=== PATIENT | female | born 1995 | race Caucasian/White ===

== ENCOUNTER 2017-09-27 17:02 | Emergency (ER) | payer SELFPAY ==
[2017-09-27] MEDS ORDERED: NS 1000 ML 1,000 ML ONE (17:30)
--- NOTE | 2017-09-27 17:30 | DR.GENAD ---
HPI - Complaint/Symptoms Chief Complaint Doctors Comments: Patient presented via EMS s/p ingestion of five prozacs (20mg). She states that she arguing with her boyfirend and she did not think he was paying her any attention. She took the medication to get his attention. She denies being suicidal or homocidal. She and her significant other live together and have three children. PMH - PMH Past Medical History: Hypertension Past Surgical History: No - Family History Family Medical History: Hypertension - Social History Do you use any recreational Drugs:: No ROS - Review of Systems Eyes: No Symptoms Reported ENTM: No Symptoms Reported Respiratoy: No Symptoms Reported Cardiovascular: No Symptoms Reported Gastrointestinal/Abdominal: No Symptoms Reported Genitourinary: No Symptoms Reported Neurological: No Symptoms Reported Musculoskeletal: No Symptoms Reported Integumentary: No Symptoms Reported Hematologic/Lymphatic: No Symptoms Reported Endocrine: No Symptoms Reported Psychiatric: No Symptoms Reported All Other Systems: Reviewed and Negative PE - Vital Signs Vitals: Temperature 97.9 F Pulse Rate [Apical] 83 Pulse Rate [Left Brachial] 64 Pulse Rate 78 Respiratory Rate 16 Blood Pressure [Right Arm] 122/76 Blood Pressure [Left Arm] 121/75 Blood Pressure 120/74 O2 Sat by Pulse Oximetry 100 - General General Appearance: Alert, In No Apparent Distress - Head Head Exam: Normal Inspection, Atraumatic - Eyes Eye exam: Normal Appearance, PERRL, EOMI - ENT ENT Exam: Normal Exam External Ear Exam: Normal External Inspection TM/Canal Exam: Bilateral Normal Nose Exam: Normal Nose Exam Mouth Exam: Normal Inspection Throat Exam: Normal Inspection - Neck Neck Exam: Normal Inspection - Chest Chest Inspection: Normal Inspection - Respiratory Respiratory Exam: Normal Lung Sounds Bilat Respiratory Exam: Bilateral Clear to Auscultation - Cardiovascular Cardiovascular Exam: Regular Rate, Normal Rhythm - Abdominal Exam Abdominal Exam: Normal Inspection, Normal Bowel Sounds Abdominal Tenderness: negative: RUQ, RLQ, LUQ, LLQ, Epigastrium, Suprapubic, Diffuse, Mild, Moderate, Severe, Other - Extremities Extremities Exam: Normal Inspection, Full ROM - Back Back Exam: Normal Inspection - Neurologic Neurological Exam: Alert, Oriented X3, CN II-XII Intact - Psychiatric Psychiatric Exam: Normal Affect - Skin Skin Exam: Warm, Dry, Intact Course - Treatment Treatment: Observation, poison control contacted; recommended observation for six hours. Patient has been alert, cooperative in no distress. She verbalized that she was foolish and will not attempt any such actions in the future. Her labs are normal ROR - Labs Reviewed Result Diagrams: 09/27/17 17:26 Laboratory: Sodium 140 mmol/L (136-145) 09/27/17 17:26 Corrected Sodium TNP 09/27/17 17:26 Potassium 4.0 mmol/L (3.5-5.1) 09/27/17 17:26 Chloride 104 mmol/L (98-107) 09/27/17 17:26 Carbon Dioxide 26.6 mmol/L (21-32) 09/27/17 17:26 BUN 20 mg/dL (7-18) H 09/27/17 17:26 Creatinine 0.65 mg/dL (0.55-1.02) 09/27/17 17:26 Est GFR (MDRD) Af Amer > 60 (>60) 09/27/17 17:26 Est GFR (MDRD) Non-Af > 60 (>60) 09/27/17 17:26 Glucose 94 mg/dL (65-99) 09/27/17 17:26 Calcium 9.2 mg/dL (8.5-10.1) 09/27/17 17:26 Corrected Calcium TNP 09/27/17 17:26 Total Bilirubin 0.30 mg/dL (0.2-1.0) 09/27/17 17:26 AST 18 Units/L (15-37) 09/27/17 17:26 ALT 25 Units/L (12-78) 09/27/17 17:26 Alkaline Phosphatase 76 Units/L (46-116) 09/27/17 17:26 Total Protein 7.3 g/dL (6.4-8.2) 09/27/17 17:26 Albumin 3.8 g/dL (3.4-5.0) 09/27/17 17:26 Globulin 3.5 g/dL (2.5-4.5) 09/27/17 17:26 Albumin/Globulin Ratio 1.1 Ratio (1.1-2.1) 09/27/17 17:26 Salicylates < 2.8 mg/dL (2.8-20) L 09/27/17 19:58 Acetaminophen 0.0 ug/mL (10-30) L 09/27/17 17:26 Ethyl Alcohol mg/dL < 3 mg/dL (0-19.9) 09/27/17 17:26 - Diagnosis Discharge Problem: Anger reaction - Discharge Plan Condition: Stable - Follow ups/Referrals Follow ups/Referrals: NFD,None [Primary Care Provider] - 3 days - Instructions
[2017-09-27 17:38] VITALS: BMI 25.7
[2017-09-27] MEDS ORDERED: NS 1000 ML 1,000 ML IV ONE (17:39)
[2017-09-27 18:09] LABS: SALICYLATE < 2.8 mg/dL (2.8-20)
[2017-09-27 18:11] LABS: ALANINE AMINOTRANSFERASE 25 Units/L (12-78); ALBUMIN 3.8 g/dL (3.4-5.0); ALKALINE PHOSPHATASE 76 Units/L (46-116); ASPARTATE AMINO TRANSFERASE 18 Units/L (15-37); BLOOD UREA NITROGEN 20 mg/dL (7-18); CALCIUM 9.2 mg/dL (8.5-10.1); CARBON DIOXIDE 26.6 mmol/L (21-32); CHLORIDE 104 mmol/L (98-107); CREATININE 0.65 mg/dL (0.55-1.02); SODIUM 140 mmol/L (136-145); TOTAL PROTEIN 7.3 g/dL (6.4-8.2); eGFR BLACK RACES > 60 (>60); eGFR NON BLACK RACES > 60 (>60)
[2017-09-27 18:12] LABS: BLOOD ALCOHOL < 3 mg/dL (0-19.9)
[2017-09-27 22:58] VITALS: BP 132/71
== END 2017-09-27 23:07 | disposition home or self-care (01) ==
LOC: ER 17:08
DX: R45.4 Irritability and anger (principal)
CPT/HCPCS: 36415; 80053; 80307; 80320; 96365; 96367; 99283; G6038; G6039; G6040

== ENCOUNTER 2018-01-17 18:22 | Emergency (ER) | payer OTHER ==
[2018-01-17 18:32] VITALS: BMI 27.8
--- NOTE | 2018-01-17 18:38 | DR.GENAD ---
HPI - PCP Primary Care Physician: LASHAUN - HPI Comment HPI Comment: PATIENT HAVE HAD NAUSEA AND VOMITING MAINLY IN THE MORNING SINCE . NO FEVER OR DYSURIA. - Complaint/Symptoms Chief Complaint Doctors Comments: FELL AT HOME TODAY AND INJURED RT WRIST. SHE IS NAUSEATED AND DIZZY. . Chief Complaint:: PT STATES SHE FELT DIZZY AFTER GETTING UP. PT ALSO COMPLAINED OF NAUSEA. PT SATES SHE PASSED OUT AND FELL ON HER RIGHT WRIST. PT DENIES HITTING HER HEAD UPON FALLING. - Nurses notes reviewed Nurses Notes Review: Yes - Source History Provided: Patient - Mode of Arrival Mode of Arrival: Stretcher - Timing Onset of Chief Complaint: 01/17/18 Came on: Suddenly - Duration Duration: Since Onset Duration: Days - Severity Severity: Moderate PMH - PMH Past Medical History: Yes Past Medical History: Hypertension Past Medical History Comment: ITP Past Surgical History: No - Family History History of Family Medical Conditions: Yes Family Medical History: Hypertension - Social History Do you use any recreational Drugs:: No - infectious screening In the last 2 months have you had wt loss of >10#?: NO Have you had fever, night sweats or hemotysis?: No Have you traveled outside the country in the last 6 months?: No Isolation: Standard ROS - Review of Systems Constitutional: Weakness, Fatigue. negative: Chills, Fever Eyes: No Symptoms Reported. negative: Eye Pain, Discharge ENTM: negative: Ear Pain, Nose Discharge, Nose Congestion, Throat Pain Respiratoy: negative: Productive Cough, Non-Productive Cough, Short of Breath, Wheezing, Hemoptysis Cardiovascular: Syncope. negative: Chest Pain Gastrointestinal/Abdominal: Nausea, Vomiting Genitourinary: negative: Dysuria, Frequency, Hematuria Neurological: Weakness, Dizziness. negative: Headache Musculoskeletal: No Symptoms Reported Integumentary: No Symptoms Reported Hematologic/Lymphatic: No Symptoms Reported Endocrine: No Symptoms Reported All Other Systems: Reviewed and Negative PE - Vital Signs Vitals: Temperature 97.3 F Pulse Rate [Left Brachial] 95 Pulse Rate 87 Respiratory Rate 18 Blood Pressure [Right Arm] 122/76 Blood Pressure [Left Arm] 115/61 Blood Pressure 102/56 O2 Sat by Pulse Oximetry 99 - General Limitations: No Limitations General Appearance: Alert - Head Head Exam: Normal Inspection - Eyes Eye exam: Normal Appearance - ENT ENT Exam: Normal External Ear Exam External Ear Exam: Normal External Inspection TM/Canal Exam: Bilateral Normal Nose Exam: Normal Nose Exam Mouth Exam: Normal Inspection Throat Exam: Normal Inspection - Neck Neck Exam: Trachea Midline - Chest Chest Inspection: Symmetric Chest Wall Rise - Respiratory Respiratory Exam: Normal Lung Sounds Bilat Respiratory Exam: Bilateral Clear to Auscultation - Cardiovascular Cardiovascular Exam: Regular Rate, Normal Rhythm, Normal Heart Sounds - Abdominal Exam Abdominal Exam: Normal Bowel Sounds, Soft. negative: Tenderness - Extremities Extremities Exam: Tenderness (RT WRIST TENDER. CAMPBELL WITH PAIN.) - Back Back Exam: Normal Inspection - Neurologic Neurological Exam: Alert, Oriented X3, CN II-XII Intact. negative: Motor Sensory Deficit - Psychiatric Psychiatric Exam: Anxious - Skin Skin Exam: Dry MDM - Differential Diagnosis Differential Diagnosis: SYNCOPE, FALL, DEHYDRATION/HYPEREMESIS GRAVIDARUM. Course - Treatment Treatment: SEE ORDERS. FEELING BETTER AFTER IV NS. - Reevaluation 1st: Improved - Education/Counseling Education/Counseling: Patient, Education Educated On: Treatment, Diagnosis, Needs for Follow Up ROR - Labs Reviewed Laboratory Results Reviewed?: Yes Result Diagrams: 01/17/18 19:20 01/17/18 19:20 Laboratory: WBC 8.2 X10^3/uL (3.6-10.0) 01/17/18 19:20 RBC 4.50 X10^6/uL (3.5-5.4) 01/17/18 19:20 Hgb 13.3 g/dL (12.0-16.0) 01/17/18 19:20 Hct 38.3 % (36.0-47.0) 01/17/18 19:20 MCV 85.1 fL (80.0-100.0) 01/17/18 19:20 MCH 29.6 pg (27.0-34.0) 01/17/18 19:20 MCHC 34.9 g/dL (33.0-35.0) 01/17/18 19:20 RDW 14.2 % (11.6-16.5) 01/17/18 19:20 Plt Count 180 X10^3/uL (150.0-450.0) 01/17/18 19:20 MPV 9.5 fL (7.4-11.0) 01/17/18 19:20 Neut % 74.1 % (42.0-75.0) 01/17/18 19:20 Lymph % 17.1 % (21.0-51.0) L 01/17/18 19:20 Leon % 7.1 % (0.0-13.0) 01/17/18 19:20 Eos % 0.7 % (0.9-2.9) L 01/17/18 19:20 Baso % 1.0 % (0.2-1.0) 01/17/18 19:20 Neut # 6.1 x10^3/uL (2.2-4.8) H 01/17/18 19:20 Lymph # 1.4 X10^3/uL (1.3-2.9) 01/17/18 19:20 Leon # 0.6 x10^3/uL (0.3-0.8) 01/17/18 19:20 Eos # 0.1 x10^3/uL (0.0-0.2) 01/17/18 19:20 Baso # 0.1 X10^3/uL (0.0-0.1) 01/17/18 19:20 Absolute Nucleated RBC 0.0 /100WBC 01/17/18 19:20 Sodium 136 mmol/L (136-145) 01/17/18 19:20 Corrected Sodium TNP 01/17/18 19:20 Potassium 3.5 mmol/L (3.5-5.1) 01/17/18 19:20 Chloride 101 mmol/L (98-107) 01/17/18 19:20 Carbon Dioxide 25.1 mmol/L (21-32) 01/17/18 19:20 BUN 9 mg/dL (7-18) 01/17/18 19:20 Creatinine 0.62 mg/dL (0.55-1.02) 01/17/18 19:20 Est GFR (MDRD) Af Amer > 60 (>60) 01/17/18 19:20 Est GFR (MDRD) Non-Af > 60 (>60) 01/17/18 19:20 Glucose 78 mg/dL (65-99) 01/17/18 19:20 Calcium 8.6 mg/dL (8.5-10.1) 01/17/18 19:20 Corrected Calcium 9.2 mg/dL (8.5-10.1) 01/17/18 19:20 Total Bilirubin 0.30 mg/dL (0.2-1.0) 01/17/18 19:20 AST 13 Units/L (15-37) L 01/17/18 19:20 ALT 15 Units/L (12-78) 01/17/18 19:20 Alkaline Phosphatase 65 Units/L (46-116) 01/17/18 19:20 Total Protein 7.0 g/dL (6.4-8.2) 01/17/18 19:20 Albumin 3.2 g/dL (3.4-5.0) L 01/17/18 19:20 Globulin 3.8 g/dL (2.5-4.5) 01/17/18 19:20 Albumin/Globulin Ratio 0.8 Ratio (1.1-2.1) L 01/17/18 19: HCG, Quant 63324 mIU/mL (0-6) H 01/17/18 19:20 Specimen Type Clean catch urine 01/17/18 21:02 Urine Color Yellow (YELLOW) 01/17/18 21:02 Urine Appearance Clear (CLEAR) 01/17/18 21:02 Urine pH 7.0 (5.0 - 8.0) 01/17/18 21:02 Ur Specific [place] 1.010 (1.000-1.030) 01/17/18 21:02 Urine Protein 2+ (NEGATIVE) 01/17/18 21:02 Urine Glucose (UA) Negative (NEGATIVE) 01/17/18 21:02 Urine Ketones Negative (NEGATIVE) 01/17/18 21:02 Urine Occult Blood Negative (NEGATIVE) 01/17/18 21:02 Urine Nitrite Negative (NEGATIVE) 01/17/18 21:02 Urine Bilirubin Negative (NEGATIVE) 01/17/18 21:02 Urine Urobilinogen Normal (NORMAL) 01/17/18 21:02 Ur Leukocyte Esterase 1+ (NEGATIVE) 01/17/18 21:02 Urine RBC 0-1 /HPF (NEGATIVE) 01/17/18 21:02 Urine WBC 0-2 /HPF (NEGATIVE) 01/17/18 21:02 Ur Squamous Epith Cells Moderate /HPF (NEGATIVE) 01/17/18 21:02 Urine Bacteria 1+ /HPF (NEGATIVE) 01/17/18 21:02 Urine Mucus Many /HPF (NEGATIVE) 01/17/18 21:02 Ur Culture Indicated? No/not indicated 01/17/18 21:02 - XRAY XRAY Interpreted by: Radiologist XRAY Findings: REPORT DISCUSS WITH PATIENT. - Diagnosis Discharge Problem: Dehydration Syncope Qualifiers: Syncope type: unspecified Qualified Code(s): R55 - Syncope and collapse Fall Qualifiers: Encounter type: initial encounter Qualified Code(s): W19.XXXA - Unspecified fall, initial encounter - Discharge Plan Condition: Stable - Follow ups/Referrals Follow ups/Referrals: JAYCE WILKS [Primary Care Provider] - 01/18/18 - Instructions Instructions: Dehydration, Elderly, [id number], Syncope, [id number] Additional Instructions: RETURN TO ED IF WORSE.
[2018-01-17] MEDS ORDERED: ZOFRAN INJ 4 MG VIAL IVP ONE (18:54)
[2018-01-17] MEDS ORDERED: NS 1000 ML 1,000 ML IV ONE (18:54)
[2018-01-17] MEDS ORDERED: ZOFRAN INJ 4 MG VIAL ONE (19:12)
[2018-01-17] MEDS ORDERED: NS 1000 ML 1,000 ML ONE (19:12)
[2018-01-17 19:30] LABS: BASOPHILS # (AUTO) 0.1 X10^3/uL (0.0-0.1); EOSINOPHILS # (AUTO) 0.1 x10^3/uL (0.0-0.2); EOSINOPHILS % (AUTO) 0.7 % (0.9-2.9); HEMATOCRIT 38.3 % (36.0-47.0); HEMOGLOBIN 13.3 g/dL (12.0-16.0); LYMPHOCYTES # (AUTO) 1.4 X10^3/uL (1.3-2.9); LYMPHOCYTES % (AUTO) 17.1 % (21.0-51.0); MEAN CORPUSCULAR HEMOGLOBIN 29.6 pg (27.0-34.0); MEAN CORPUSCULAR HGB CONC 34.9 g/dL (33.0-35.0); MEAN CORPUSCULAR VOLUME 85.1 fL (80.0-100.0); MEAN PLATELET VOLUME 9.5 fL (7.4-11.0); MONOCYTES # (AUTO) 0.6 x10^3/uL (0.3-0.8); MONOCYTES % (AUTO) 7.1 % (0.0-13.0); NEUTROPHILS # (AUTO) 6.1 x10^3/uL (2.2-4.8); NEUTROPHILS % (AUTO) 74.1 % (42.0-75.0); PLATELET COUNT 180 X10^3/uL (150.0-450.0); RED CELL DISTRIBUTION WIDTH 14.2 % (11.6-16.5); WHITE BLOOD COUNT 8.2 X10^3/uL (3.6-10.0)
[2018-01-17 19:40] LABS: ALANINE AMINOTRANSFERASE 15 Units/L (12-78); ALBUMIN 3.2 g/dL (3.4-5.0); ALKALINE PHOSPHATASE 65 Units/L (46-116); ASPARTATE AMINO TRANSFERASE 13 Units/L (15-37); BLOOD UREA NITROGEN 9 mg/dL (7-18); CALCIUM 8.6 mg/dL (8.5-10.1); CARBON DIOXIDE 25.1 mmol/L (21-32); CHLORIDE 101 mmol/L (98-107); COR CA(FOR HYPOALB) 9.2 mg/dL (8.5-10.1); CREATININE 0.62 mg/dL (0.55-1.02); SODIUM 136 mmol/L (136-145); eGFR BLACK RACES > 60 (>60); eGFR NON BLACK RACES > 60 (>60)
[2018-01-17 20:02] LABS: HCG,QUANTITATIVE 95439 mIU/mL (0-6)
--- NOTE | 2018-01-17 21:07 | US ---
HISTORY: , dizziness/syncope, nausea Study: OB ultrasound less than 14 weeks Comparison: None Technique: Multiple grayscale and color flow Doppler images of the pelvis were obtained with focused evaluation of the fetus. Findings: There is a single living intrauterine gestation with a gestational sac and pole identified with a crown-rump length measuring 3.2 cm and with cardiac activity detected with a heart rat e of 159 beats per minute. The gestational sac measures 5.2 cm in greatest dimension. The uterus ashanti ures 10.0 cm in greatest sagittal dimension. The ovaries are obscured. There is trace free fluid with in the cul-de-sac. IMPRESSION: Single living intrauterine gestation with an average ultrasound gestational age of 10 weeks 4 days wi th an ultrasound HILARIO of August 11, 2018 Reported By:
[2018-01-17 21:45] LABS: BILIRUBIN,URINE NEGATIVE (NEGATIVE); BLOOD/HEMOGLOBIN,URINE NEGATIVE (NEGATIVE); GLUCOSE, URINE NEGATIVE (NEGATIVE); KETONES,URINE NEGATIVE (NEGATIVE); LEUKOCYTE ESTERASE ,URINE 1+ (NEGATIVE); NITRITES,URINE NEGATIVE (NEGATIVE); PROTEIN,URINE 2+ (NEGATIVE); UROBILINOGEN,URINE NORMAL (NORMAL)
[2018-01-17 21:51] LABS: COLOR,URINE YELLOW (YELLOW)
[2018-01-17 21:52] LABS: APPEARANCE,URINE CLEAR (CLEAR); BACTERIA,URINE 1+ /HPF (NEGATIVE); MUCUS,URINE MANY /HPF (NEGATIVE); RBC,URINE 0-1 /HPF (NEGATIVE); SQUAMOUS EPITHELIAL CELL,UR MODERATE /HPF (NEGATIVE)
[2018-01-17 22:04] VITALS: BP 117/58
== END 2018-01-17 22:05 | disposition home or self-care (01) ==
LOC: ER 18:25
DX: S63.501A Unspecified sprain of right wrist, initial encounter (principal); E86.0 Dehydration; R55 Syncope and collapse; Z33.1 Pregnant state, incidental; W19.XXXA Unspecified fall, initial encounter; Y92.009 Unspecified place in unspecified non-institutional (private) residence as the place of occurrence of the external cause
CPT/HCPCS: 36415; 76801; 80053; 81001; 84702; 85025; 96365; 96367; 96374; 99283; 99284; J2405

== ENCOUNTER 2018-02-21 21:51 | Emergency (ER) | payer OTHER ==
[2018-02-21 22:00] VITALS: BMI 32.8
[2018-02-21 22:45] LABS: BILIRUBIN,URINE NEGATIVE (NEGATIVE); BLOOD/HEMOGLOBIN,URINE NEGATIVE (NEGATIVE); GLUCOSE, URINE NEGATIVE (NEGATIVE); KETONES,URINE 1+ (NEGATIVE); LEUKOCYTE ESTERASE ,URINE 1+ (NEGATIVE); NITRITES,URINE NEGATIVE (NEGATIVE); PROTEIN,URINE NEGATIVE (NEGATIVE); UROBILINOGEN,URINE NORMAL (NORMAL)
[2018-02-21 22:52] LABS: AMORPHOUS SEDIMENT,UR TRACE /HPF (NEGATIVE); APPEARANCE,URINE HAZY (CLEAR); BACTERIA,URINE 1+ /HPF (NEGATIVE); COLOR,URINE YELLOW (YELLOW); MUCUS,URINE FEW /HPF (NEGATIVE); RENAL EPITHELIAL CELLS,URINE FEW /HPF (NEGATIVE); SQUAMOUS EPITHELIAL CELL,UR MODERATE /HPF (NEGATIVE)
--- NOTE | 2018-02-21 23:04 | DR.GENAD ---
HPI - PCP Primary Care Physician: LASHAUN - HPI Comment HPI Comment: NO VAGINAL BLEEDING OR DISCHARGE. DENIES FEVER OR DYSURIA. PATIENT IS 15 WEEKS . - Complaint/Symptoms Chief Complaint Doctors Comments: LLQ ABDOMINAL PAIN NOTED TODAY THAT IS PERSISTENT AND GETTING WORSE. Chief Complaint:: LEFT LOWER QUADRANT PAIN - Nurses notes reviewed Nurses Notes Review: Yes - Source History Provided: Patient - Mode of Arrival Mode of Arrival: Ambulatory - Timing Onset of Chief Complaint: 02/21/18 Came on: Suddenly - Duration Duration: Constant Duration: Hours - Severity Severity: Moderate PMH - PMH Past Medical History: Yes Past Medical History: Hypertension Past Medical History Comment: BLOOD DISORDER (ITP) Past Surgical History: No - Family History History of Family Medical Conditions: Yes Family Medical History: PR, Hypertension - Social History Does patient currently use any type of tobacco product: Yes Have you used tobacco products in the last 12 months: Yes Type of Tobacco Use: Cigarettes Does any household member use tobacco: Yes Alcohol Use: None Do you use any recreational Drugs:: No Lives With: Spouse Lives Where: Home - infectious screening In the last 2 months have you had wt loss of >10#?: NO Have you had fever, night sweats or hemotysis?: No Have you traveled outside the country in the last 6 months?: No Isolation: Standard ROS - Review of Systems Constitutional: No Symptoms Reported Eyes: No Symptoms Reported ENTM: No Symptoms Reported Respiratoy: No Symptoms Reported Cardiovascular: No Symptoms Reported Gastrointestinal/Abdominal: Abdominal Pain, Nausea Genitourinary: Pain. negative: Dysuria, Hematuria, Bleeding Neurological: No Symptoms Reported Musculoskeletal: No Symptoms Reported Integumentary: No Symptoms Reported Hematologic/Lymphatic: No Symptoms Reported Endocrine: No Symptoms Reported All Other Systems: Reviewed and Negative PE - Vital Signs Vitals: Temperature 98.2 F Pulse Rate [Left Brachial] 78 Pulse Rate 101 Respiratory Rate 18 Blood Pressure [Right Arm] 122/76 Blood Pressure [Left Arm] 120/72 Blood Pressure 122/61 O2 Sat by Pulse Oximetry 100 - General Limitations: No Limitations General Appearance: Alert - Head Head Exam: Normal Inspection - Eyes Eye exam: Normal Appearance - ENT ENT Exam: Normal External Ear Exam TM/Canal Exam: Bilateral Normal Nose Exam: Normal Nose Exam Mouth Exam: Normal Inspection Throat Exam: Normal Inspection - Neck Neck Exam: Trachea Midline - Chest Chest Inspection: Symmetric Chest Wall Rise - Respiratory Respiratory Exam: Normal Lung Sounds Bilat Respiratory Exam: Bilateral Clear to Auscultation - Cardiovascular Cardiovascular Exam: Regular Rate, Normal Rhythm, Normal Heart Sounds - Abdominal Exam Abdominal Exam: Normal Bowel Sounds, Soft, Tenderness Abdominal Tenderness: LLQ - Extremities Extremities Exam: Normal Inspection - Back Back Exam: Normal Inspection - Neurologic Neurological Exam: Alert, Oriented X3 - Psychiatric Psychiatric Exam: Anxious - Skin Skin Exam: Normal Color MDM - Differential Diagnosis Differential Diagnosis: ABDOMINAL PAIN DURING , UTI, THREATENED MISCARRIAGE. ROR - Labs Reviewed Laboratory: HCG, Quant 92343 mIU/mL (0-6) H 02/21/18 22:53 Specimen Type Clean catch urine 02/21/18 22:30 Urine Color Yellow (YELLOW) 02/21/18 22:30 Urine Appearance Hazy (CLEAR) 02/21/18 22:30 Urine pH 7.0 (5.0 - 8.0) 02/21/18 22:30 Ur Specific [place] 1.015 (1.000-1.030) 02/21/18 22:30 Urine Protein Negative (NEGATIVE) 02/21/18 22:30 Urine Glucose (UA) Negative (NEGATIVE) 02/21/18 22:30 Urine Ketones 1+ (NEGATIVE) 02/21/18 22:30 Urine Occult Blood Negative (NEGATIVE) 02/21/18 22:30 Urine Nitrite Negative (NEGATIVE) 02/21/18 22:30 Urine Bilirubin Negative (NEGATIVE) 02/21/18 22:30 Urine Urobilinogen Normal (NORMAL) 02/21/18 22:30 Ur Leukocyte Esterase 1+ (NEGATIVE) 02/21/18 22:30 Urine RBC 3-5 /HPF (NONE SEEN) 02/21/18 22:30 Urine WBC 3-5 /HPF (NONE SEEN) 02/21/18 22:30 Ur Squamous Epith Cells Moderate /HPF (NEGATIVE) 02/21/18 22:30 Ur Renal Epithelial Cell Few /HPF (NEGATIVE) 02/21/18 22:30 Amorphous Sediment Trace /HPF (NEGATIVE) 02/21/18 22:30 Urine Bacteria 1+ /HPF (NEGATIVE) 02/21/18 22:30 Urine Mucus Few /HPF (NEGATIVE) 02/21/18 22:30 Ur Culture Indicated? No/not indicated 02/21/18 22:30 - Diagnosis Discharge Problem: Abdominal pain affecting - Discharge Plan Condition: Stable - Follow ups/Referrals Follow ups/Referrals: JAYCE WILKS [Primary Care Provider] - 02/23/18 - Instructions Instructions: Abdominal Pain During , [id number], Pelvic Rest Additional Instructions: RETURN TO ED IF WORSE.
--- NOTE | 2018-02-22 01:23 | US ---
OB ultrasound greater than 14 weeks Indication: Abdominal pain Comparison: None available Technique: Multiple grayscale and color flow Doppler images of the pelvis were obtained with focused evaluation of the fetus. Findings: A viable single intrauterine is identified with heart tones of 133 beats per minute. A transverse presentation is observed with a posterior and fundal placenta. No subchorionic or retrop lacental hemorrhage. Normal amniotic fluid volume is within normal limits. No gross sonographic abnormality identified within the four-chamber heart, three-vessel cord urinary bladder or spine. Value Estimated Gestational Age BPD 3.13 cm 15 weeks, 6 days HC 11.27 cm 15 weeks, 3 days AC 10.63 cm 16 weeks, 4 days FL 1.71 cm 15 weeks, 0 days Estimated gestational age is 15 weeks, 5 days. Estimated weight is 135 g. IMPRESSION: A viable single intrauterine with an average ultrasound age of 15 weeks, 5 days. No evidence of placental abnormality or retroplacental or subchronic hemorrhage. Reported By:
[2018-02-22 01:29] VITALS: BP 120/72
== END 2018-02-22 01:29 | disposition home or self-care (01) ==
LOC: ER 22:09
DX: R10.32 Left lower quadrant pain (principal); Z3A.15 15 weeks gestation of pregnancy
CPT/HCPCS: 36415; 76801; 81001; 84702; 99282; 99284

== ENCOUNTER 2018-08-17 06:20 | Inpatient (IN) ==
[2018-08-17] MEDS ORDERED: LR 1000 ML IV 1,000 ML IV ONE ×2 (06:25→09:42)
[2018-08-17] MEDS ORDERED: D5 1/2 NS 1000 ML 1,000 ML IV ONE (06:26)
[2018-08-17] MEDS ORDERED: D5 1/2 NS 1L W PITOCIN 20 UNITS/L 20 UNITS/1,000 ML BAG IV ONE (06:26)
[2018-08-17] MEDS ORDERED: NAROPIN EPIDURAL 0.2% + FENTANYL 90MCG 60 ML EPI ONE (06:26)
[2018-08-17] MEDS ORDERED: D5LR 1L W PITOCIN 10 UNITS/L 10 UNITS/1,000 ML BAG IV ONE (06:26)
[2018-08-17] MEDS ORDERED: PITOCIN ONE (06:27)
[2018-08-17] MEDS ORDERED: FENTANYL INJ 100 mcg ONE (06:27)
[2018-08-17] MEDS ORDERED: NUBAIN INJ 200 MG VIAL MULTIDOSE IVP PRN (06:59)
[2018-08-17] MEDS ORDERED: D5LR 1L W PITOCIN 10 UNITS/L 10 UNITS/1,000 ML BAG IV PRN (06:59)
[2018-08-17] MEDS ORDERED: PITOCIN IVP ONE (06:59)
[2018-08-17] MEDS ORDERED: MORPHINE SULFATE INJ 2 MG INJ IVP PRN (06:59)
[2018-08-17] MEDS ORDERED: PHENERGAN INJ 25 MG IV PRN ×2 (06:59→12:13)
[2018-08-17] MEDS ORDERED: REGLAN INJ 10 MG VIAL IVP PRN (06:59)
[2018-08-17] MEDS ORDERED: D5 1/2 NS 1000 ML 1,000 ML IV SCH (07:00)
--- NOTE | 2018-08-17 07:14 | DR.OB ---
OB Quick Note - Assessment/Plan Assessment/Plan: L&D 08/17/18 at 7:10am S-No complaint. O-Afebrile,VSS [id number] with good LTV, +accel, no decel. CTX=q 1 1/2 to 8 min., mild by palpation CVX=3-4cm/50%/0/VTX AROM with clear fluid. IUPC and FSE placed. A-IUP at 40 1/7 weeks for induction P-Begin pitocin induction Anticipate
[2018-08-17] MEDS: XYLOCAINE 1 % (PLAIN) ONE ×2 (07:53→09:10)
[2018-08-17] MEDS: ADRENALINE CHL INJ ONE ×2 (07:56→09:08)
[2018-08-17] MEDS: FENTANYL INJ 100 mcg EPI ONE ×2 (08:00→13:17)
[2018-08-17] MEDS ORDERED: NAROPIN EPIDURAL 0.2% 60 ML with FENTANYL INJ 100 mcg 90 MCG IVP SCH ×2 (10:00)
[2018-08-17] MEDS: D5 1/2 NS 1000 ML 1,000 ML with PITOCIN 20 UNITS IV SCH ×4 (12:05→21:46)
--- NOTE | 2018-08-17 12:13 | DR.OB ---
OB Quick Note - Assessment/Plan Assessment/Plan: Delivery Note [facility] GROWER 08/17/18 at 11:59pm Patient complete and pushing. Head delivered over intact perineum. No nuchal cord. Nose and mouth bulb suctioned. Body delivered over intact perineum. Cord clamped x 2 and cut. Infant handed to attendant. Cord sent for gases. Placenta delivered spontaneously / intact / 3 vessel cord. No CVX / vaginal / perineal tears noted. Viable male , VTX/OA, wt=8'9" and 9/9, stable to NBN. Mother stable to RR. VMG=[id number].
[2018-08-17] MEDS ORDERED: AMBIEN PO PRN (13:15)
[2018-08-17] MEDS ORDERED: MILK OF MAGNESIA PO PRN (13:15)
[2018-08-17] MEDS ORDERED: ADACEL or BOOSTRIX TDaP VACCINE IM ONE (13:15)
[2018-08-17] MEDS ORDERED: DERMOPLAST SPRAY TOP PRN (13:15)
[2018-08-17] MEDS: NICOTINE PATCH TD SCH (15:05)
[2018-08-17] MEDS: MOTRIN TAB 800 MG PO PRN (17:45)
[2018-08-17] MEDS: ZANTAC PO SCH (20:23)
[2018-08-18] MEDS: MOTRIN TAB 800 MG PO PRN (01:55)
[2018-08-18 05:10] LABS: HEMATOCRIT 32.8 % (36.0-47.0); HEMOGLOBIN 11.2 g/dL (12.0-16.0)
[2018-08-18] MEDS: D5 1/2 NS 1000 ML 1,000 ML with PITOCIN 20 UNITS IV SCH ×2 (06:11)
[2018-08-18] MEDS ORDERED: DEPO-PROVERA CONTRACEPTIVE INJ IM ONE (07:23)
[2018-08-18] MEDS: NICOTINE PATCH TD SCH (08:14)
[2018-08-18] MEDS: ZANTAC PO SCH (08:15)
[2018-08-18] MEDS ORDERED: ADACEL or BOOSTRIX TDaP VACCINE IM ONE (09:00)
[2018-08-18] MEDS ORDERED: PRENATAL PLUS PO SCH (09:00)
[2018-08-18 12:42] VITALS: BP 131/66
== END 2018-08-18 14:00 | disposition home or self-care (01) | DRG 775 ==
LOC: LD 06:20 → MED/SURG 13:18
PROVIDERS: ADMIT Specialist; ATTEND Specialist
DX: Z37.0 Single live birth; O80 Encounter for full-term uncomplicated delivery; Z3A.40 40 weeks gestation of pregnancy; Z23 Encounter for immunization
CPT/HCPCS: 36415; 59409; 80048; 80307; 81001; 85014; 85018; 85025; 86592; 86850; 86900; 86901; 90715; A4216; A4222; S0197; G0434; J0171; J1050; J2590; J3010; J7120; S5010

== ENCOUNTER 2020-01-25 06:30 | Inpatient (IN) ==
[~2020-01-25 06:30] MED LIST: D5 1/2 NS 1000 ML 1,000 ML IV ONE; D5LR 1L W PITOCIN 10 UNITS/L 10 UNITS/1,000 ML BAG IV ONE
[2020-01-25] MEDS ORDERED: PITOCIN IVP ONE (06:48)
[2020-01-25] MEDS ORDERED: PHENERGAN INJ 25 MG IM PRN ×2 (06:48→12:39)
[2020-01-25] MEDS ORDERED: D5LR 1L W PITOCIN 10 UNITS/L 10 UNITS/1,000 ML BAG IV PRN (06:48)
[2020-01-25] MEDS ORDERED: NUBAIN INJ 200 MG VIAL MULTIDOSE IVP PRN (06:48)
[2020-01-25] MEDS ORDERED: REGLAN INJ 10 MG VIAL IVP PRN (06:48)
[2020-01-25] MEDS ORDERED: MORPHINE SULFATE INJ 2 MG INJ IVP PRN (06:48)
[2020-01-25] MEDS ORDERED: D5 1/2 NS 1000 ML 1,000 ML IV SCH (06:48)
[2020-01-25] MEDS ORDERED: LR 1000 ML IV 1,000 ML IV ONE (07:32)
[2020-01-25] MEDS ORDERED: FENTANYL INJ 100 mcg ONE (07:33)
[2020-01-25] MEDS ORDERED: PITOCIN ONE (07:33)
[2020-01-25] MEDS ORDERED: D5 1/2 NS 1L W PITOCIN 20 UNITS/L 20 UNITS/1,000 ML BAG IV ONE (07:34)
[2020-01-25] MEDS: NAROPIN EPIDURAL 0.2% + FENTANYL 90MCG 60 ML EPI ONE ×2 (08:55→10:20)
--- NOTE | 2020-01-25 12:02 | DR.OB ---
OB Quick Note - Assessment/Plan Assessment/Plan: L&D 01/25/20 at 11:50am Pitocin=18mu/min. S-No complaint. O-Afebrile,VSS [id number] with good LTV, +accel, no decel. CTX=q 2-3 min., about 45mmHg CVX=6-7cm/75%/0 A-IUP at 39 1/7 weeks for induction P-Cont. pitocin induction Anticipate with PP BTL as desired
[2020-01-25] MEDS ORDERED: XYLOCAINE 2% and EPINEPHRINE 1:100,000 ONE (12:39)
--- NOTE | 2020-01-25 12:39 | DR.OB ---
OB Quick Note - Assessment/Plan Assessment/Plan: Delivery Note [employer] 01/25/20 at 12:35pm Patient complete and pushing. Head delivered over intact perineum. Nuchal cord x 2 reduced. Nose and mouth bulb suctioned. Body delivered over intact perineum. Cord clamped x 2 and cut. Infant handed to attendant. Cord sent of gases. Placenta delivered spontaneously / intact / 3 vessel cord. No CVX / vaginal / perineal tears. Viable female infant, VTX/OA, wt=6'10" and 9/9, stable to NBN. Mother stable to RR. VNH=[id number].
[2020-01-25] MEDS ORDERED: ANCEF 1 GRAM IV PREMIX* 1 G/50 ML BAG IV ONE (12:48)
[2020-01-25] MEDS ORDERED: BACTROBAN TOPICAL OINT ONE (13:15)
[2020-01-25] MEDS ORDERED: AMBIEN PO PRN ×2 (13:53)
[2020-01-25] MEDS ORDERED: MILK OF MAGNESIA PO PRN ×2 (13:53)
[2020-01-25] MEDS ORDERED: MYLICON TAB 80 MG CHEW PO PRN (13:53)
[2020-01-25] MEDS ORDERED: ADACEL or BOOSTRIX TDaP VACCINE IM ONE (13:53)
[2020-01-25] MEDS ORDERED: DERMOPLAST SPRAY TOP PRN (13:53)
[2020-01-25] MEDS ORDERED: VERSED ONE (15:45)
[2020-01-25] MEDS ORDERED: DIPRIVAN VIAL ONE (15:45)
[2020-01-25] MEDS: PERCOCET TAB 5/325 MG PO PRN ×2 (18:07→22:45)
[2020-01-25] MEDS: MOTRIN TAB 800 MG PO PRN (18:08)
[2020-01-25] MEDS: D5 1/2 NS 1000 ML 1,000 ML with PITOCIN 20 UNITS IV SCH ×2 (23:41)
[2020-01-26 04:38] LABS: HEMATOCRIT 36.4 % (36.0-47.0); HEMOGLOBIN 12.3 g/dL (12.0-16.0)
[2020-01-26] MEDS: D5 1/2 NS 1000 ML 1,000 ML with PITOCIN 20 UNITS IV SCH ×2 (05:31)
[2020-01-26] MEDS: MOTRIN TAB 800 MG PO PRN (07:41)
[2020-01-26] MEDS ORDERED: PRENATAL PLUS PO SCH (09:00)
[2020-01-26 11:45] VITALS: BP 144/76
[2020-01-26] MEDS: PERCOCET TAB 5/325 MG PO PRN (13:42)
[2020-01-26] MEDS ORDERED: BACTROBAN CREAM TOP SCH (14:00)
== END 2020-01-26 14:30 | disposition home or self-care (01) | DRG 798 ==
LOC: LD 06:30 → MED/SURG 13:56
PROVIDERS: ADMIT Specialist; ATTEND Specialist
DX: D69.6 Thrombocytopenia, unspecified; O99.12 Other diseases of the blood and blood-forming organs and certain disorders involving the immune mechanism complicating childbirth; Z3A.39 39 weeks gestation of pregnancy; Z37.0 Single live birth
CPT/HCPCS: 36415; 59409; 80048; 80307; 81001; 85014; 85018; 85025; 86592; 86850; 86900; 86901; A4216; A4222; J0690; J2001; J2250; J2590; J2704; J3010; J3490; J7120; S0197; S5010